=== PATIENT | male | born 1970 | race Two or more races ===

== ENCOUNTER 2017-05-02 17:13 | Inpatient (IN) | payer MEDICAID, OTHER ==
[2017-05-02] MEDS: ASPIRIN 325 MG TAB PO (21:51)
[2017-05-02] MEDS: NITROGLYCERIN (SL) 0.4 MG TAB SL (21:52)
[2017-05-02] MEDS: morphine 4 MG/ML VIAL IV (21:52)
[2017-05-02] MEDS: LABETALOL HCL 20MG INJ IV (21:52)
[2017-05-02 22:05] LABS: ADD MAN DIFF? NO
[2017-05-02 22:07] LABS: WHITE BLOOD COUNT 7.1 10^3/ul (4.8-10.8)
[2017-05-02 22:07] LABS: BASOPHILS % 0.4 % (0.0-2.0); EOSINOPHILS # 0.7 10^3/ul (0.0-0.5); EOSINOPHILS % 9.8 % (0.0-7.0); HEMOGLOBIN 15.3 g/dl (14.0-18.0); LYMPHOCYTES # 1.8 10^3/ul (0.8-2.9); MEAN CORPUSCULAR HEMOGLOBIN 28.4 pg (29.0-33.0); MEAN CORPUSCULAR HGB CONC 34.8 g/dl (32.0-37.0); MEAN CORPUSCULAR VOLUME 81.6 fl (82.0-101.0); MEAN PLATELET VOLUME 12.6 fl (7.4-10.4); MONOCYTE # 0.6 10^3/ul (0.3-0.9); MONOCYTES % 7.9 % (0.0-11.0); NEUTROPHILS % 56.8 % (39.0-77.0); PLATELET COUNT 133 10^3/UL (140-415); RED BLOOD COUNT 5.39 10^6/ul (4.70-6.10); RED CELL DISTRIBUTION WIDTH 11.9 % (11.5-14.5)
[2017-05-02 22:27] LABS: INR 0.93; PROTIME 12.5 Sec (11.9-14.9)
[2017-05-02 22:28] LABS: ANION GAP 15 (8-16); BLOOD UREA NITROGEN 17 mg/dl (7-20); CALCIUM 9.7 mg/dl (8.4-10.2); CARBON DIOXIDE 27 mmol/L (21-31); CHLORIDE 102 mmol/L (97-110); GLUCOSE 97 mg/dl (70-220); PARTIAL THROMBOPLASTIN TIME 35.3 Sec (25.0-35.0); POTASSIUM 3.9 mmol/L (3.5-5.1); SODIUM 140 mmol/L (135-144)
[2017-05-02 22:39] LABS: B-TYPE NATRIURETIC PEPTIDE 253 PG/ML (0-125); TROPONIN-I 0.036 ng/ml (0.00-0.12)
[2017-05-02] MEDS: SOD CHLORIDE 0.9% 1,000 ML IV (23:50)
[2017-05-03] MEDS: IODIXANOL LOCM 100 ML BTL
[2017-05-03] MEDS: SOD CHLORIDE 0.9% 100 ML (00:03)
[2017-05-03] MEDS: LABETALOL HCL 20MG INJ IV ×2 (00:37→01:35)
[2017-05-03] MEDS: ESMOLOL 250 ML IV ×9 (01:35→22:06)
[2017-05-03] MEDS ORDERED: morphine 2 MG INJ IV (03:30)
[2017-05-03] MEDS ORDERED: LORAZEPAM 2 MG INJ IV (03:30)
[2017-05-03] MEDS ORDERED: ONDANSETRON 4 MG INJ IV (03:30)
[2017-05-03 04:04] LABS: CREATINE KINASE 100 IU/L (23-200)
[2017-05-03 04:17] LABS: CK INDEX 2.3; TROPONIN-I 0.038 ng/ml (0.00-0.12)
[2017-05-03 08:45] LABS: ADD MAN DIFF? NO
[2017-05-03 08:51] LABS: BASOPHILS % 0.2 % (0.0-2.0); EOSINOPHILS # 0.3 10^3/ul (0.0-0.5); EOSINOPHILS % 2.9 % (0.0-7.0); HEMATOCRIT 42.4 % (42.0-52.0); HEMOGLOBIN 14.4 g/dl (14.0-18.0); LYMPHOCYTES % 11.3 % (15.0-51.0); MEAN CORPUSCULAR HEMOGLOBIN 28.3 pg (29.0-33.0); MEAN CORPUSCULAR VOLUME 83.3 fl (82.0-101.0); MONOCYTE # 0.3 10^3/ul (0.3-0.9); MONOCYTES % 3.2 % (0.0-11.0); NEUTROPHIL # 7.1 10^3/ul (1.6-7.5); NEUTROPHILS % 82.2 % (39.0-77.0); PLATELET COUNT 118 10^3/UL (140-415); RED BLOOD COUNT 5.09 10^6/ul (4.70-6.10); RED CELL DISTRIBUTION WIDTH 11.9 % (11.5-14.5)
[2017-05-03 08:51] LABS: WHITE BLOOD COUNT 8.6 10^3/ul (4.8-10.8)
[2017-05-03] MEDS: PANTOPRAZOLE 40 MG INJ IV (09:03)
[2017-05-03] MEDS: CLEVIDIPINE BUTYRATE 100 ML IV ×2 (09:03→22:10)
[2017-05-03 09:15] LABS: ALANINE AMINOTRANSFERASE 32 IU/L (13-69); ALBUMIN 3.7 g/dl (3.3-4.9); ALBUMIN/GLOBULIN RATIO 1.23; ALKALINE PHOSPHATASE 62 IU/L (42-121); ANION GAP 11 (8-16); ASPARTATE AMINO TRANSFERASE 20 IU/L (15-46); BILIRUBIN,INDIRECT 0.7 mg/dl (0-1.1); BILIRUBIN,TOTAL 0.7 mg/dl (0.2-1.3); BLOOD UREA NITROGEN 16 mg/dl (7-20); CALCIUM 8.8 mg/dl (8.4-10.2); CARBON DIOXIDE 30 mmol/L (21-31); CHLORIDE 102 mmol/L (97-110); CREATININE 1.52 mg/dl (0.61-1.24); GLUCOSE 133 mg/dl (70-220); SODIUM 139 mmol/L (135-144); TOTAL PROTEIN 6.7 g/dl (6.1-8.1)
[2017-05-03 09:17] LABS: CREATINE KINASE 87 IU/L (23-200)
[2017-05-03 09:25] LABS: CK INDEX 2.4; TROPONIN-I 0.032 ng/ml (0.00-0.12)
[2017-05-03 09:37] LABS: CK-MB 2.08 ng/ml (0.0-2.4)
[2017-05-03 10:03] LABS: HEPATITIS C VIRAL ANTIBODY NEGATIVE (NEGATIVE)
[2017-05-03 10:07] LABS: HIV 1&2 ANTIBODY NEGATIVE (NEGATIVE)
[2017-05-03] MEDS: ACETAMINOPHEN 650MG/20.3ML CUP PO (13:29)
[2017-05-03] MEDS: SOD CHLORIDE 0.9% 1,000 ML IV (15:29)
[2017-05-03 17:06] LABS: HEMOGLOBIN A1C 5.5 % (0-5.9)
[2017-05-03] MEDS: METOPROLOL 25 MG TAB PO ×2 (17:23→20:41)
[2017-05-03] MEDS: NIFEdipine 10 MG CAP PO (17:24)
[2017-05-03 22:24] LABS: ADD UMIC YES; UR ASCORBIC ACID NEGATIVE (NEGATIVE); UR BILIRUBIN (Dip) NEGATIVE (NEGATIVE); UR BLOOD (Dip) NEGATIVE (NEGATIVE); UR CLARITY CLEAR (CLEAR); UR COLOR YELLOW (YELLOW); UR GLUCOSE (Dip) NEGATIVE (NEGATIVE); UR KETONES (Dip) NEGATIVE (NEGATIVE); UR LEUKOCYTE ESTERASE (Dip) NEGATIVE Leu/ul (NEGATIVE); UR NITRITE (Dip) NEGATIVE (NEGATIVE); UR RBC 0 /HPF (0-5); UR SPECIFIC GRAVITY (Dip) 1.033 (1.003-1.030); UR TOTAL PROTEIN (Dip) 1+ mg/dl (NEGATIVE); UR UROBILINOGEN (Dip) NEGATIVE (NEGATIVE); UR WBC 0 /HPF (0-5)
[2017-05-03 22:49] LABS: CREATININE,URINE RANDOM 136.23 mg/dl (20-370); SODIUM,URINE RANDOM 89 mmol/L (30-90)
[2017-05-03 22:52] LABS: AMPHETAMINE/METHAMPHETAMINE Negative (NEGATIVE); OPIATES Positive (NEGATIVE)
[2017-05-03 22:58] LABS: BARBITURATES Negative (NEGATIVE); BENZODIAZEPINES Negative (NEGATIVE); CANNABINOIDS Negative (NEGATIVE); COCAINE Negative (NEGATIVE)
[2017-05-04] MEDS: ESMOLOL 250 ML IV ×9 (00:25→22:48)
[2017-05-04] MEDS: NIFEdipine 10 MG CAP PO ×5 (00:28→23:29)
[2017-05-04] MEDS: CLEVIDIPINE BUTYRATE 100 ML IV ×2 (04:08→07:46)
[2017-05-04 05:46] LABS: ADD MAN DIFF? NO
[2017-05-04 05:56] LABS: WHITE BLOOD COUNT 9.6 10^3/ul (4.8-10.8)
[2017-05-04 05:56] LABS: BASOPHILS % 0.2 % (0.0-2.0); EOSINOPHILS # 0.3 10^3/ul (0.0-0.5); EOSINOPHILS % 2.6 % (0.0-7.0); HEMATOCRIT 41.6 % (42.0-52.0); HEMOGLOBIN 14.5 g/dl (14.0-18.0); LYMPHOCYTES # 1.2 10^3/ul (0.8-2.9); LYMPHOCYTES % 12.3 % (15.0-51.0); MEAN CORPUSCULAR HEMOGLOBIN 28.5 pg (29.0-33.0); MEAN CORPUSCULAR HGB CONC 34.9 g/dl (32.0-37.0); MEAN CORPUSCULAR VOLUME 81.9 fl (82.0-101.0); MEAN PLATELET VOLUME 12.8 fl (7.4-10.4); MONOCYTE # 0.7 10^3/ul (0.3-0.9); MONOCYTES % 6.9 % (0.0-11.0); NEUTROPHIL # 7.5 10^3/ul (1.6-7.5); NEUTROPHILS % 77.7 % (39.0-77.0); PLATELET COUNT 122 10^3/UL (140-415); RED BLOOD COUNT 5.08 10^6/ul (4.70-6.10); RED CELL DISTRIBUTION WIDTH 11.9 % (11.5-14.5)
[2017-05-04 06:37] LABS: ANION GAP 13 (8-16); BLOOD UREA NITROGEN 13 mg/dl (7-20); CALCIUM 8.5 mg/dl (8.4-10.2); CARBON DIOXIDE 25 mmol/L (21-31); CHLORIDE 105 mmol/L (97-110); CREATININE 1.47 mg/dl (0.61-1.24); GLUCOSE 101 mg/dl (70-220); MAGNESIUM 1.5 mg/dl (1.7-2.5); POTASSIUM 3.8 mmol/L (3.5-5.1); SODIUM 139 mmol/L (135-144)
[2017-05-04 07:08] LABS: THYROID STIMULATING HORMONE 0.636 MIU/L (0.465-4.680)
[2017-05-04] MEDS: METOPROLOL 25 MG TAB PO (08:21)
[2017-05-04] MEDS: MAGNESIUM SULFATE 3 GM in DEXTROSE 5% 100 ML IVPB (11:25)
[2017-05-05] MEDS: ESMOLOL 250 ML IV ×3 (00:29→07:59)
[2017-05-05] MEDS: NIFEdipine 10 MG CAP PO ×2 (05:33→11:41)
[2017-05-05 06:22] LABS: ADD MAN DIFF? NO
[2017-05-05 06:29] LABS: WHITE BLOOD COUNT 9.3 10^3/ul (4.8-10.8)
[2017-05-05 06:29] LABS: ABNORMAL IP MESSAGE 1; BASOPHILS % 0.2 % (0.0-2.0); EOSINOPHILS # 0.1 10^3/ul (0.0-0.5); EOSINOPHILS % 1.2 % (0.0-7.0); HEMATOCRIT 38.3 % (42.0-52.0); HEMOGLOBIN 13.6 g/dl (14.0-18.0); LYMPHOCYTES # 1.2 10^3/ul (0.8-2.9); LYMPHOCYTES % 12.5 % (15.0-51.0); MEAN CORPUSCULAR HEMOGLOBIN 28.9 pg (29.0-33.0); MEAN CORPUSCULAR HGB CONC 35.5 g/dl (32.0-37.0); MEAN CORPUSCULAR VOLUME 81.3 fl (82.0-101.0); MONOCYTE # 0.8 10^3/ul (0.3-0.9); MONOCYTES % 8.4 % (0.0-11.0); NEUTROPHIL # 7.2 10^3/ul (1.6-7.5); NEUTROPHILS % 77.5 % (39.0-77.0); PLATELET COUNT 110 10^3/UL (140-415); POSITIVE DIFF @See below; RED BLOOD COUNT 4.71 10^6/ul (4.70-6.10); RED CELL DISTRIBUTION WIDTH 11.9 % (11.5-14.5)
[2017-05-05 07:01] LABS: ANION GAP 14 (8-16); BLOOD UREA NITROGEN 14 mg/dl (7-20); CALCIUM 8.4 mg/dl (8.4-10.2); CARBON DIOXIDE 23 mmol/L (21-31); CHLORIDE 106 mmol/L (97-110); CREATININE 1.33 mg/dl (0.61-1.24); GLUCOSE 99 mg/dl (70-220); MAGNESIUM 1.7 mg/dl (1.7-2.5); POTASSIUM 3.6 mmol/L (3.5-5.1); SODIUM 139 mmol/L (135-144)
[2017-05-05] MEDS: NIFEdipine (XL) 90 MG TAB PO (15:08)
[2017-05-05] MEDS: ACETAMINOPHEN 650MG/20.3ML CUP PO (17:51)
[2017-05-06 05:40] LABS: ADD MAN DIFF? NO
[2017-05-06 05:46] LABS: WHITE BLOOD COUNT 5.9 10^3/ul (4.8-10.8)
[2017-05-06 05:46] LABS: BASOPHILS % 0.5 % (0.0-2.0); EOSINOPHILS # 0.5 10^3/ul (0.0-0.5); EOSINOPHILS % 8.8 % (0.0-7.0); HEMATOCRIT 40.4 % (42.0-52.0); HEMOGLOBIN 14.1 g/dl (14.0-18.0); LYMPHOCYTES % 17.2 % (15.0-51.0); MEAN CORPUSCULAR HEMOGLOBIN 28.2 pg (29.0-33.0); MEAN CORPUSCULAR HGB CONC 34.9 g/dl (32.0-37.0); MEAN CORPUSCULAR VOLUME 80.8 fl (82.0-101.0); MONOCYTE # 0.6 10^3/ul (0.3-0.9); MONOCYTES % 9.3 % (0.0-11.0); NEUTROPHIL # 3.8 10^3/ul (1.6-7.5); NEUTROPHILS % 63.9 % (39.0-77.0); PLATELET COUNT 114 10^3/UL (140-415); RED CELL DISTRIBUTION WIDTH 11.9 % (11.5-14.5)
[2017-05-06 06:03] LABS: ALANINE AMINOTRANSFERASE 31 IU/L (13-69); ALBUMIN 3.4 g/dl (3.3-4.9); ALBUMIN/GLOBULIN RATIO 1.25; ALKALINE PHOSPHATASE 52 IU/L (42-121); ANION GAP 10 (8-16); ASPARTATE AMINO TRANSFERASE 19 IU/L (15-46); BILIRUBIN,INDIRECT 0.3 mg/dl (0-1.1); BILIRUBIN,TOTAL 0.3 mg/dl (0.2-1.3); BLOOD UREA NITROGEN 16 mg/dl (7-20); CALCIUM 8.6 mg/dl (8.4-10.2); CARBON DIOXIDE 26 mmol/L (21-31); CHLORIDE 108 mmol/L (97-110); CREATININE 1.24 mg/dl (0.61-1.24); GLUCOSE 107 mg/dl (70-220); POTASSIUM 3.8 mmol/L (3.5-5.1); SODIUM 140 mmol/L (135-144); TOTAL PROTEIN 6.1 g/dl (6.1-8.1)
[2017-05-06] MEDS: NIFEdipine (XL) 90 MG TAB PO (08:45)
[2017-05-07 08:13] LABS: ANION GAP 16 (8-16); BLOOD UREA NITROGEN 21 mg/dl (7-20); CALCIUM 9.3 mg/dl (8.4-10.2); CARBON DIOXIDE 26 mmol/L (21-31); CHLORIDE 104 mmol/L (97-110); CREATININE 1.19 mg/dl (0.61-1.24); GLUCOSE 99 mg/dl (70-220); POTASSIUM 3.8 mmol/L (3.5-5.1); SODIUM 142 mmol/L (135-144)
[2017-05-07] MEDS: NIFEdipine (XL) 90 MG TAB PO (10:00)
== END 2017-05-07 19:05 | disposition home or self-care (01) | DRG 305 ==
LOC: ICU 05-03 03:26 → MS4 05-06 12:10 → E/R 17:13 → ICU 05-03 22:22
DX: I16.1 Hypertensive emergency (principal); D69.6 Thrombocytopenia, unspecified; I11.9 Hypertensive heart disease without heart failure; Z90.5 Acquired absence of kidney; I70.203 Unspecified atherosclerosis of native arteries of extremities, bilateral legs; R07.9 Chest pain, unspecified; K57.90 Diverticulosis of intestine, part unspecified, without perforation or abscess without bleeding
CPT/HCPCS: 36415; 71045; 71275; 74177; 76775; 80048; 80053; 80307; 81001; 81003; 82306; 82540; 82550; 82553; 83036; 83735; 83880; 84100; 84155; 84300; 84443; 84484; 85025; 85610; 85730; 86703; 86803; 87081; 93005; 93306; 93923; 93971; 93976; 96374; 96375; 96376; 99291-25

== ENCOUNTER 2017-05-18 18:30 | Emergency (ER) | payer MEDICAID | END 2017-05-18 22:49 | disposition home or self-care (01) | LOC: FTE 18:30 | DX: Z09 Encounter for follow-up examination after completed treatment for conditions other than malignant neoplasm (principal); I10 Essential (primary) hypertension | CPT/HCPCS: 99282; Z7502 ==

== ENCOUNTER 2017-08-09 18:46 | Emergency (ER) | payer MEDICAID ==
[2017-08-09] MEDS: ACETAMINOPHEN 500 MG TAB PO (20:53)
[2017-08-09] MEDS: NICARDipine HCL 30 MG CAPSULE PO (21:13)
== END 2017-08-09 22:57 | disposition home or self-care (01) ==
LOC: E/R 22:57
DX: S09.90XA Unspecified injury of head, initial encounter (principal); I16.0 Hypertensive urgency; I10 Essential (primary) hypertension; R51 Headache; Y04.0XXA Assault by unarmed brawl or fight, initial encounter
CPT/HCPCS: 70450; 99284-25